=== PATIENT | female | born 1995 | race Hispanic/Latino ===

== ENCOUNTER 2021-11-21 16:11 | Observation (INO) | payer OTHER, MEDICAID ==
[~2021-11-21] VITALS: Ht 165.1 cm; Wt 100.6 kg
[2021-11-21] MEDS ORDERED: LIDOCAINE HCL 2% VISCOUS 15 ML UDCUP PO ONE (16:30)
[2021-11-21] MEDS ORDERED: MAG/ALUM/SIMETH 30 ML UDCUP PO ONE (16:30)
[2021-11-21] MEDS ORDERED: DICYCLOMINE HCL 10 MG/5 ML ML PO ONE (16:30)
[2021-11-21] MEDS ORDERED: PANTOPRAZOLE 40 MG/VIAL IVP ONE (16:30)
[2021-11-21] MEDS ORDERED: LACTATED RINGERS 1000ML 1,000 ML IV ONE (16:30)
[2021-11-21 16:43] LABS: BASOPHILS % (AUTO) 0.5 % (0.0-5.0); EOSINOPHILS % (AUTO) 0.6 % (0.0-8.0); HEMATOCRIT 37.3 % (36-48); LYMPHOCYTES % (AUTO) 19.9 % (21.0-51.0); MEAN CORPUSCULAR HEMOGLOBIN 28.8 pg (27.0-33.0); MEAN CORPUSCULAR HGB CONC 32.2 g/dL (32.0-36.0); MEAN CORPUSCULAR VOLUME 89.7 fL (79-99); MONOCYTES % (AUTO) 5.5 % (3.0-13.0); NEUTROPHILS % (AUTO) 73.1 % (40.0-77.0); PLATELET COUNT (AUTO) 286 K/uL (130-400); RED BLOOD CELL COUNT(AUTO) 4.16 MIL/uL (4.00-5.50); RED CELL DISTRIBUTION WIDTH 14.3 % (11.0-15.5)
[2021-11-21 16:52] LABS: CREATININE 0.7 mg/dL (0.5-1.5); POTASSIUM 3.1 mmol/L (3.5-5.1)
[2021-11-21 17:02] LABS: AMPHET/METH SCREEN,URINE NEGATIVE (NEGATIVE); BARBITURATE SCREEN, URINE NEGATIVE (NEGATIVE); BENZODIAZEPINES SCREEN,URINE NEGATIVE (NEGATIVE); CANNABINOID SCREEN,URINE NEGATIVE (NEGATIVE); COCAINE SCREEN,URINE NEGATIVE (NEGATIVE); HCG,QUAL RESULT NEGATIVE (NEGATIVE); OPIATE SCREEN,URINE NEGATIVE (NEGATIVE); PHENCYCLIDINE SCREEN,URINE NEGATIVE (NEGATIVE)
[2021-11-21 17:03] LABS: ALBUMIN 3.6 g/dL (3.5-5.0); BILIRUBIN,TOTAL 0.7 mg/dL (0.2-1.0); TOTAL PROTEIN, SERUM 7.8 g/dL (6.0-8.3)
[2021-11-21] MEDS ORDERED: IOHEXOL 350 MG/ML 100ML INFUS..BTL IV ONE (18:04)
[2021-11-21] MEDS ORDERED: POTASSIUM BICARB/CIT AC 25 MEQ TABLET.EFF PO ONE (18:30)
[2021-11-21] MEDS ORDERED: DIPHENHYDRAMINE HCL 25 MG CAPSULE PO PRN (20:30)
[2021-11-21] MEDS ORDERED: NITROGLYCERIN 0.4 MG SL TAB SL PRN (20:30)
[2021-11-21] MEDS ORDERED: LACTULOSE 20 GM/30 ML UDCUP PO PRN (20:30)
[2021-11-21] MEDS ORDERED: MAG/ALUM/SIMETH 30 ML UDCUP PO PRN (20:30)
[2021-11-21] MEDS ORDERED: MORPHINE 2 MG SYG IV PRN (20:30)
[2021-11-21] MEDS ORDERED: ACETAMINOPHEN 325 MG TAB PO PRN (20:30)
[2021-11-21] MEDS ORDERED: ONDANSETRON 4MG INJ IV PRN (20:30)
[2021-11-21] MEDS ORDERED: GUAIFENESIN-DM 200/20 MG 10 ML PO PRN (20:30)
[2021-11-21] MEDS ORDERED: MORPHINE 4 MG SYG IV PRN (20:30)
[2021-11-21] MEDS ORDERED: LIDOCAINE HCL-MPF 1% 2ML VIAL IV PRN (21:00)
[2021-11-21] MEDS ORDERED: POTASSIUM CHLORIDE 10% ELIXIR 20 MEQ/15 ML UDCUP PO PRN (21:00)
[2021-11-21] MEDS ORDERED: POTASSIUM CHLORIDE 20MEQ/100ML 100 ML IV PRN (21:00)
[2021-11-21] MEDS: ZOSYN 3.375GM+NS 50ML 50 ML IV SCH (21:17)
[2021-11-21] MEDS: LACTATED RINGERS 1000ML 1,000 ML IV SCH (21:17)
[2021-11-21 21:30] VITALS: BP 146/68
[2021-11-21] MEDS ORDERED: PANT40TA PO (22:08)
[2021-11-21] MEDS: KCL 20 MEQ ERTAB PO PRN (22:13)
[2021-11-22] VITALS (7 sets, daily range): BP systolic 97–116; BP diastolic 49–69
[2021-11-22] MEDS: KCL 20 MEQ ERTAB PO PRN ×3 (02:50→23:59)
[2021-11-22] MEDS: ZOSYN 3.375GM+NS 50ML 50 ML IV SCH ×3 (04:23→19:49)
[2021-11-22 05:05] LABS: BASOPHILS % (AUTO) 0.5 % (0.0-5.0); EOSINOPHILS % (AUTO) 1.4 % (0.0-8.0); HEMATOCRIT 34.4 % (36-48); LYMPHOCYTES % (AUTO) 37.2 % (21.0-51.0); MEAN CORPUSCULAR HGB CONC 31.7 g/dL (32.0-36.0); MEAN CORPUSCULAR VOLUME 91.5 fL (79-99); MONOCYTES % (AUTO) 7.8 % (3.0-13.0); NEUTROPHILS % (AUTO) 52.7 % (40.0-77.0); PLATELET COUNT (AUTO) 263 K/uL (130-400); RED BLOOD CELL COUNT(AUTO) 3.76 MIL/uL (4.00-5.50); RED CELL DISTRIBUTION WIDTH 14.6 % (11.0-15.5); WHITE BLOOD COUNT (AUTO) 5.5 K/uL (4.8-10.8)
[2021-11-22 05:18] LABS: CREATININE 0.7 mg/dL (0.5-1.5); POTASSIUM 4.1 mmol/L (3.5-5.1)
[2021-11-22] MEDS: LACTATED RINGERS 1000ML 1,000 ML IV SCH ×3 (06:42→19:49)
[2021-11-22] MEDS: PANTOPRAZOLE 40 MG/VIAL IVP SCH (08:47)
[2021-11-22 15:55] LABS: HEMATOCRIT 37.7 % (36-48)
[2021-11-23] VITALS (27 sets, daily range): BP systolic 99–153; BP diastolic 54–90
[2021-11-23] MEDS: ZOSYN 3.375GM+NS 50ML 50 ML IV SCH ×3 (04:56→20:48)
[2021-11-23 05:14] LABS: HEMATOCRIT 35.6 % (36-48); MEAN CORPUSCULAR HEMOGLOBIN 28.6 pg (27.0-33.0); MEAN CORPUSCULAR HGB CONC 31.5 g/dL (32.0-36.0); MEAN CORPUSCULAR VOLUME 90.8 fL (79-99); RED BLOOD CELL COUNT(AUTO) 3.92 MIL/uL (4.00-5.50); RED CELL DISTRIBUTION WIDTH 14.5 % (11.0-15.5); WHITE BLOOD COUNT (AUTO) 5.4 K/uL (4.8-10.8)
[2021-11-23 05:33] LABS: CREATININE 0.8 mg/dL (0.5-1.5); POTASSIUM 3.9 mmol/L (3.5-5.1)
[2021-11-23] MEDS: LACTATED RINGERS 1000ML 1,000 ML IV SCH ×2 (09:07→22:30)
[2021-11-23] MEDS: PANTOPRAZOLE 40 MG/VIAL IVP SCH (09:10)
[2021-11-23] MEDS: INDOCYANINE GREEN 25 MG VIAL IJ ONE ×2 (12:34→13:20)
[2021-11-23] MEDS ORDERED: FENTANYL CITRATE PF 50 MCG/1 ML 5ML AMP IV ONE (12:42)
[2021-11-23] MEDS ORDERED: MIDAZOLAM HCL 1 MG/ML 2ML VIAL ONE (12:42)
[2021-11-23] MEDS ORDERED: PROPOFOL 10 MG/ML 20ML VIAL IV ONE (12:42)
[2021-11-23] MEDS ORDERED: ONDANSETRON 4MG INJ ONE (13:14)
[2021-11-23] MEDS ORDERED: ROCURONIUM 10MG/1ML SYR 10 MG/ML ML ONE ×2 (13:14→14:21)
[2021-11-23] MEDS ORDERED: LIDOCAINE 1%-EPI 1:100,000 20 ML VIAL IJ ONE (13:55)
[2021-11-23] MEDS ORDERED: BUPIVACAINE/PF 0.5% 30ML VIAL ONE (13:55)
[2021-11-23] MEDS ORDERED: NEOSTIGMINE 5MG/5ML SYR IV ONE (14:50)
[2021-11-23] MEDS ORDERED: GLYCOPYRROLATE 1 MG/5 ML SYRINGE ONE (14:50)
[2021-11-23] MEDS ORDERED: KETOROLAC 30MG VIAL (30MG/ML) ONE (14:52)
[2021-11-23] MEDS ORDERED: MEPERIDINE-PF 25 MG/ML SYG ONE ×3 (15:03→15:37)
[2021-11-23] MEDS: OXYCODONE/ACETAMIN 5/325MG TAB PO PRN (20:49)
[2021-11-24] MEDS: OXYCODONE/ACETAMIN 5/325MG TAB PO PRN (02:56)
[2021-11-24 03:46] VITALS: BP 114/57
[2021-11-24] MEDS: ZOSYN 3.375GM+NS 50ML 50 ML IV SCH (04:23)
[2021-11-24 07:10] VITALS: BP 116/59
[2021-11-24 08:18] LABS: HEMATOCRIT 35.7 % (36-48); MEAN CORPUSCULAR HEMOGLOBIN 29.4 pg (27.0-33.0); MEAN CORPUSCULAR HGB CONC 32.5 g/dL (32.0-36.0); MEAN CORPUSCULAR VOLUME 90.4 fL (79-99); RED BLOOD CELL COUNT(AUTO) 3.95 MIL/uL (4.00-5.50); WHITE BLOOD COUNT (AUTO) 9.4 K/uL (4.8-10.8)
[2021-11-24 08:25] LABS: CREATININE 0.7 mg/dL (0.5-1.5); POTASSIUM 3.8 mmol/L (3.5-5.1)
[2021-11-24] MEDS: LACTATED RINGERS 1000ML 1,000 ML IV SCH (08:30)
[2021-11-24] MEDS: PANTOPRAZOLE 40 MG/VIAL IVP SCH (08:47)
== END 2021-11-24 09:44 | disposition home or self-care (01) ==
LOC: EDH 16:11 → INTOOBSV 20:17 → EDHIP 20:17 → 3BH 21:13
PROVIDERS: ADMIT Hospitalist; ATTEND Hospitalist
DX: K80.00 Calculus of gallbladder with acute cholecystitis without obstruction (principal); Z20.822 Contact with and (suspected) exposure to COVID-19; E87.6 Hypokalemia; R11.2 Nausea with vomiting, unspecified; E66.9 Obesity, unspecified; R74.01 Elevation of levels of liver transaminase levels; K82.8 Other specified diseases of gallbladder; Z68.36 Body mass index [BMI] 36.0-36.9, adult; Z79.899 Other long term (current) drug therapy
CPT/HCPCS: 47562; S2900; 36415; 74177; 76705; 78227; 80048; 80053; 80305; 81025; 83690; 84132; 84484; 85014; 85018; 85025; 85027; 87635; 96361; 96365; 96366; 96375; 96376; A9537; C9113; G0378; J1885; J2175; J2250; J2405; J2543; J2704; J2710; J3010; J3490; J7030; J7120; Q9967